=== PATIENT | male | born 1980 | race Caucasian/White ===

== ENCOUNTER 2021-09-02 21:52 | Emergency (ER) | payer BC ==
--- NOTE | 2021-09-02 23:33 | ERPHSYRPT ---
- History of Present Illness Time Seen by Provider: 09/02/21 23:25 Historian: patient Physician History: This is a 41-year-old white male patient who has had a history of gastroesophageal reflux disease and H. pylori diagnosis in the past and presents to the emergency room with a history of 8 days of diarrhea and 4 episodes of vomiting during those 8 days with the most recent just prior to arrival to emergency room. Patient was seen in the outpatient clinic and asked dual specimen was sent but the results are not yet available to us. Patient states that he did have a negative influenza A and B just a few days ago. Patient has had some abdominal cramping. He has no cough. He has no chest pain or shortness of breath. Patient and his spouse both were diagnosed with positive COVID 19 infection in early July 2021. Timing/Duration: day(s) (8) Activities at Onset: none Quality: cramping Severity of Pain-Max: moderate Severity of Pain-Current: moderate Modifying Factors: Improves With: vomiting Associated Symptoms: diarrhea, loss of appetite, nausea, vomiting, weakness Previous symptoms: same symptoms as today, recently seen, recently treated Allergies/Adverse Reactions: erythromycin ethylsuccinate [From [facility].] Allergy (Severe, Verified 01/23/14 09 :12) Rash Penicillins Allergy (Severe, Verified 01/23/14 09:12) Rash Home Medications: Omeprazole Magnesium [Prilosec Otc] 20 mg PO DAILY 01/23/14 [History] Hx Influenza Vaccination/Date Given: No Hx Pneumococcal Vaccination/Date Given: No Travel Risk - International Travel Have you traveled outside of the country in past 3 weeks: No - Coronavirus Screening Are you exhibiting any of the following symptoms?: Yes Symptoms: Vomiting/Diarrhea Close contact with a COVID-19 positive Pt in past 14-21 Days: No - Review of Systems Constitutional: Weakness Eyes: No Symptoms Ears, Nose, & Throat: No Symptoms Respiratory: No Symptoms Cardiac: No Symptoms Abdominal/Gastrointestinal: Abdominal Pain, Nausea, Vomiting, Diarrhea Genitourinary Symptoms: No Symptoms Musculoskeletal: No Symptoms Skin: No Symptoms Neurological: No Symptoms Psychological: No Symptoms Endocrine: No Symptoms Hematologic/Lymphatic: No Symptoms Immunological/Allergic: No Symptoms All Other Systems: Reviewed and Negative - Past Medical History Pertinent Past Medical History: Yes Neurological History: No Pertinent History ENT History: No Pertinent History Cardiac History: No Pertinent History Respiratory History: No Pertinent History Endocrine Medical History: No Pertinent History Musculoskeletal History: No Pertinent History GI Medical History: GERD, Hernia, Other History: No Pertinent History Psycho-Social History: No Pertinent History Male Reproductive Disorders: No Pertinent History Other Medical History: h-pylori diagnosis in 2009 - Past Surgical History Past Surgical History: Yes Neuro Surgical History: No Pertinent History Cardiac: No Pertinent History Respiratory: No Pertinent History Gastrointestinal: Hernia Repair Genitourinary: No Pertinent History Musculoskeletal: No Pertinent History Male Surgical History: No Pertinent History - Social History Smoking Status: Never smoker Exposure to second hand smoke: No Drug Use: none Patient Lives Alone: Yes - Nursing Vital Signs Nursing Vital Signs: Initial Vital Signs Temperature 98.6 F 09/02/21 23:10 Pulse Rate 111 H 09/02/21 23:10 Respiratory Rate 16 09/02/21 23:10 Blood Pressure 156/98 09/02/21 23:10 O2 Sat by Pulse Oximetry 98 09/02/21 23:10 Pain Scale Pain Intensity 2 - Physical Exam General Appearance: no apparent distress, alert, anxiety, thin Eye Exam: PERRL/EOMI, eyes nml inspection Ears, Nose, Throat Exam: normal ENT inspection, moist mucous membranes Neck Exam: normal inspection, non-tender, supple, full range of motion Respiratory Exam: normal breath sounds, lungs clear, airway intact, No chest tenderness, No respiratory distress Cardiovascular Exam: tachycardia Gastrointestinal/Abdomen Exam: soft, normal bowel sounds, tenderness (Diffuse), guarding, No rebound Rectal Exam: not done Back Exam: normal inspection, normal range of motion, No CVA tenderness, No vertebral tenderness Extremity Exam: normal inspection, normal range of motion, pelvis stable Neurologic Exam: alert, oriented x 3, cooperative, software development manager II-XII nml as tested, normal mood/affect, nml cerebellar function, nml station & gait, sensation nml Skin Exam: normal color, warm, dry Lymphatic Exam: No adenopathy SpO2 Interpretation: normal O2 Delivery: Room Air - Course Nursing assessment & vital signs reviewed: Yes Ordered Tests: Active Orders 24 hr Category Date Time Status IV Insertion STAT Care 09/02/21 23:37 Active ABDOMEN AND PELVIS W/0 CONTRAS [CT] Stat Exams 09/02/21 23:37 Taken AMYLASE Stat Lab 09/02/21 23:48 Completed BLOOD CULTURE Stat Lab 09/02/21 23:56 Received CBC W DIFF Stat Lab 09/02/21 23:37 Completed CMP Stat Lab 09/02/21 23:48 Completed LIPASE Stat Lab 09/02/21 23:48 Completed Lactic Acid Stat Lab 09/02/21 23:37 Completed Manual Differential NC Stat Lab 09/02/21 23:37 Completed Medication Summary Discontinued Medications Generic Name Dose Route Start Last Admin Trade Name Saurabhq PRN Reason Stop Dose Admin Hydromorphone HCl 0.5 mg 09/02/21 23:37 09/02/21 23:53 Hydromorphone 1 Mg/1ml Inj 1 Mg/Ml Syringe IV 09/02/21 23:38 0.5 mg STAT ONE Administration Hydromorphone HCl Confirm 09/02/21 23:50 Hydromorphone 1 Mg/1ml Inj 1 Mg/Ml Syringe Administered 09/02/21 23:51 Dose 1 mg .ROUTE .STK-MED ONE Sodium Chloride 1,000 mls @ 999 mls/hr 09/02/21 23:37 09/03/21 01:17 Sodium Chloride 0.9% 1000 Ml IV 09/03/21 00:37 Infused .Q1H1M STA Infusion Sodium Chloride Confirm 09/02/21 23:51 Sodium Chloride 0.9% 1000 Ml Administered 09/02/21 23:52 Dose 1,000 mls @ ud .ROUTE .STK-MED ONE Sodium Chloride 1,000 mls @ 999 mls/hr 09/03/21 00:27 09/03/21 01:35 Sodium Chloride 0.9% 1000 Ml IV 09/03/21 01:27 Infused .Q1H1M STA Infusion Sodium Chloride Confirm 09/03/21 00:32 Sodium Chloride 0.9% 1000 Ml Administered 09/03/21 00:33 Dose 1,000 mls @ ud .ROUTE .STK-MED ONE Ondansetron HCl 4 mg 09/02/21 23:37 09/02/21 23:53 Ondansetron Hcl 4 Mg/2 Ml Vial IV 09/02/21 23:38 4 mg STAT ONE Administration Ondansetron HCl Confirm 09/02/21 23:49 Ondansetron Hcl 4 Mg/2 Ml Vial Administered 09/02/21 23:50 Dose 4 mg .ROUTE .STK-MED ONE Lab/Rad Data: Laboratory Result Diagrams 09/02/21 23:37 09/02/21 23:48 Laboratory Results 09/02/21 09/02/21 09/02/21 Range/Units Unknown Unknown 23:56 WBC (4.0-10.5) K/mm3 RBC (4.1-5.6) M/mm3 Hgb (12.5-18.0) gm/dl Hct (42-50) % MCV (78-100) fl MCH (26-32) pg MCHC (32-36) g/dl RDW (11.5-14.0) % Plt Count (150-450) K/mm3 MPV (7.5-11.0) fl Gran % (36.0-66.0) % Eos # (Auto) (0-0.5) Absolute Lymphs (auto) (1.0-4.6) Absolute Monos (auto) (0.0-1.3) Lymphocytes % (24.0-44.0) % Monocytes % (0.0-12.0) % Eosinophils % (0.00-5.0) % Basophils % (0.0-0.4) % Absolute Granulocytes (1.4-6.9) Basophils # (0-0.4) Sodium (137-145) mmol/L Potassium (3.5-5.1) mmol/L Chloride (98-107) mmol/L Carbon Dioxide (22-30) mmol/L Anion Gap (5-15) MEQ/L BUN (9-20) mg/dL Creatinine (0.66-1.25) mg/dL Estimated GFR ML/MIN Glucose (74-106) mg/dL Lactic Acid (0.4-2.0) Calcium (8.4-10.2) mg/dL Total Bilirubin (0.2-1.3) mg/dL AST (17-59) U/L ALT (0-50) U/L Alkaline Phosphatase (38-126) U/L Serum Total Protein (6.3-8.2) g/dL Albumin (3.5-5.0) g/dL Amylase (30-110) U/L Lipase (23-300) U/L Urinalys Dipstick Clnc MAIN LAB Urine Color YELLOW (YELLOW) Urine Appearance CLEAR (CLEAR) Urine pH 5.5 (5-6) Ur Specific [place] >=1.030 (1.005-1.025) POC Urine Protein Conf 30 (Negative) Urine Ketones NEGATIVE (NEGATIVE) Urine Nitrite NEGATIVE (NEGATIVE) Urine Bilirubin SMALL (NEGATIVE) Urine Urobilinogen 0.2 (0-1) mg/dL Urine Leukocytes NEGATIVE (NEGATIVE) Urine WBC (Auto) 3-5 (0-5) /HPF Urine RBC (Auto) NONE (0-2) /HPF U Epithel Cells (Auto) NONE (FEW) /HPF Urine Bacteria (Auto) RARE (NEGATIVE) /HPF Urine RBC NEGATIVE (0-5) Nestor/ul Urine Mucus (Auto) MANY (NEGATIVE) /HPF Ur Culture Indicated? NO Urine Glucose NEGATIVE (NEGATIVE) mg/dL Monoscreen NEGATIVE (Negative) Influenza Type A Ag NEGATIVE (NEGATIVE) Influenza Type B Ag NEGATIVE (NEGATIVE) RSV (PCR) NEGATIVE (Negative) SARS-CoV-2 (PCR) NEGATIVE (NEGATIVE) Group A Strep Antibody (NEGATIVE) 09/02/21 09/02/21 09/02/21 Range/Units 23:56 23:48 23:37 WBC (4.0-10.5) K/mm3 RBC (4.1-5.6) M/mm3 Hgb (12.5-18.0) gm/dl Hct (42-50) % MCV (78-100) fl MCH (26-32) pg MCHC (32-36) g/dl RDW (11.5-14.0) % Plt Count (150-450) K/mm3 MPV (7.5-11.0) fl Gran % (36.0-66.0) % Eos # (Auto) (0-0.5) Absolute Lymphs (auto) (1.0-4.6) Absolute Monos (auto) (0.0-1.3) Lymphocytes % (24.0-44.0) % Monocytes % (0.0-12.0) % Eosinophils % (0.00-5.0) % Basophils % (0.0-0.4) % Absolute Granulocytes (1.4-6.9) Basophils # (0-0.4) Sodium 139 (137-145) mmol/L Potassium 4.4 (3.5-5.1) mmol/L Chloride 102 (98-107) mmol/L Carbon Dioxide 24 (22-30) mmol/L Anion Gap 17.2 H (5-15) MEQ/L BUN 21 H (9-20) mg/dL Creatinine 1.18 (0.66-1.25) mg/dL Estimated GFR > 60.0 ML/MIN Glucose 135 H (74-106) mg/dL Lactic Acid 1.3 (0.4-2.0) Calcium 10.1 (8.4-10.2) mg/dL Total Bilirubin 0.80 (0.2-1.3) mg/dL AST 27 (17-59) U/L ALT 41 (0-50) U/L Alkaline Phosphatase 99 (38-126) U/L Serum Total Protein 7.9 (6.3-8.2) g/dL Albumin 4.7 (3.5-5.0) g/dL Amylase 64 (30-110) U/L Lipase 39 (23-300) U/L Urinalys Dipstick Clnc Urine Color (YELLOW) Urine Appearance (CLEAR) Urine pH (5-6) Ur Specific [place] (1.005-1.025) POC Urine Protein Conf (Negative) Urine Ketones (NEGATIVE) Urine Nitrite (NEGATIVE) Urine Bilirubin (NEGATIVE) Urine Urobilinogen (0-1) mg/dL Urine Leukocytes (NEGATIVE) Urine WBC (Auto) (0-5) /HPF Urine RBC (Auto) (0-2) /HPF U Epithel Cells (Auto) (FEW) /HPF Urine Bacteria (Auto) (NEGATIVE) /HPF Urine RBC (0-5) Nestor/ul Urine Mucus (Auto) (NEGATIVE) /HPF Ur Culture Indicated? Urine Glucose (NEGATIVE) mg/dL Monoscreen (Negative) Influenza Type A Ag (NEGATIVE) Influenza Type B Ag (NEGATIVE) RSV (PCR) (Negative) SARS-CoV-2 (PCR) (NEGATIVE) Group A Strep Antibody NOT DETECTED (NEGATIVE) 09/02/21 Range/Units 23:37 WBC 14.5 H (4.0-10.5) K/mm3 RBC 5.75 H (4.1-5.6) M/mm3 Hgb 17.0 (12.5-18.0) gm/dl Hct 49.6 (42-50) % MCV 86.3 (78-100) fl MCH 29.6 (26-32) pg MCHC 34.3 (32-36) g/dl RDW 13.5 (11.5-14.0) % Plt Count 377 (150-450) K/mm3 MPV 9.7 (7.5-11.0) fl Gran % 81.7 H (36.0-66.0) % Eos # (Auto) 0.04 (0-0.5) Absolute Lymphs (auto) 1.50 (1.0-4.6) Absolute Monos (auto) 1.10 (0.0-1.3) Lymphocytes % 10.3 L (24.0-44.0) % Monocytes % 7.6 (0.0-12.0) % Eosinophils % 0.3 (0.00-5.0) % Basophils % 0.1 (0.0-0.4) % Absolute Granulocytes 11.88 H (1.4-6.9) Basophils # 0.02 (0-0.4) Sodium (137-145) mmol/L Potassium (3.5-5.1) mmol/L Chloride (98-107) mmol/L Carbon Dioxide (22-30) mmol/L Anion Gap (5-15) MEQ/L BUN (9-20) mg/dL Creatinine (0.66-1.25) mg/dL Estimated GFR ML/MIN Glucose (74-106) mg/dL Lactic Acid (0.4-2.0) Calcium (8.4-10.2) mg/dL Total Bilirubin (0.2-1.3) mg/dL AST (17-59) U/L ALT (0-50) U/L Alkaline Phosphatase (38-126) U/L Serum Total Protein (6.3-8.2) g/dL Albumin (3.5-5.0) g/dL Amylase (30-110) U/L Lipase (23-300) U/L Urinalys Dipstick Clnc Urine Color (YELLOW) Urine Appearance (CLEAR) Urine pH (5-6) Ur Specific [place] (1.005-1.025) POC Urine Protein Conf (Negative) Urine Ketones (NEGATIVE) Urine Nitrite (NEGATIVE) Urine Bilirubin (NEGATIVE) Urine Urobilinogen (0-1) mg/dL Urine Leukocytes (NEGATIVE) Urine WBC (Auto) (0-5) /HPF Urine RBC (Auto) (0-2) /HPF U Epithel Cells (Auto) (FEW) /HPF Urine Bacteria (Auto) (NEGATIVE) /HPF Urine RBC (0-5) Nestor/ul Urine Mucus (Auto) (NEGATIVE) /HPF Ur Culture Indicated? Urine Glucose (NEGATIVE) mg/dL Monoscreen (Negative) Influenza Type A Ag (NEGATIVE) Influenza Type B Ag (NEGATIVE) RSV (PCR) (Negative) SARS-CoV-2 (PCR) (NEGATIVE) Group A Strep Antibody (NEGATIVE) - Progress Progress: improved, pain not gone completely, re-examined Progress Note: 09/03/21 02:59 CAT scan of the abdomen pelvis shows fluid throughout the colon and fluid in portions of the small bowel compatible with nonspecific diarrheal disease. There is small mesenteric adenopathy present in the central abdomen and right lower quadrant. Counseled pt/family regarding: lab results, diagnosis, need for follow-up, rad results - Departure Departure Disposition: Home Clinical Impression: Diarrhea Condition: Stable Critical Care Time: No Referrals: ROBERTA SINCLAIR MD [Primary Care Provider] - Follow up/PCP as directed Additional Instructions: Drink plenty of fluids. Take medication as prescribed. Follow-up with your primary care physician for further management. Prescriptions: Ondansetron ODT 4 MG [Zofran Odt 4 mg] 4 mg PO Q6H PRN PRN #10 tablet PRN Reason: Vomiting Metronidazole 500 mg [Flagyl 500 MG] 500 mg PO TID #21 tablet
[2021-09-02] MEDS ORDERED: Hydromorphone 1 mg/ml Injection IV ONE (23:37)
[2021-09-02] MEDS ORDERED: Zofran 4 MG/2 ML VIAL IV ONE (23:37)
[2021-09-02] MEDS ORDERED: Sodium Chloride 0.9% 1000 ML 1,000 ML IV STA (23:37)
[2021-09-02] MEDS ORDERED: Zofran 4 MG/2 ML VIAL ONE (23:49)
[2021-09-02] MEDS ORDERED: Hydromorphone 1 mg/ml Injection ONE (23:50)
[2021-09-02] MEDS ORDERED: Sodium Chloride 0.9% 1000 ML 1,000 ML ONE (23:51)
[2021-09-02 23:53] LABS: Absolute Neutrophil Ct (ANC) 11.88 (1.4-6.9); Basophil (Absolute #) 0.02 (0-0.4); Eosinophil % 0.3 % (0.00-5.0); Eosinophil (Absolute #) 0.04 (0-0.5); Hematocrit 49.6 % (42-50); Lymphocytes % 10.3 % (24.0-44.0); Mean Cell Volume 86.3 fl (78-100); Mean Corpuscular Hemoglobin 29.6 pg (26-32); Mean Corpuscular Hgb Concent. 34.3 g/dl (32-36); Mean Platelet Volume 9.7 fl (7.5-11.0); Monocytes % 7.6 % (0.0-12.0); Neutrophil % 81.7 % (36.0-66.0); Platelet Count 377 K/mm3 (150-450); Red Blood Count 5.75 M/mm3 (4.1-5.6); Red Cell Distribution Width 13.5 % (11.5-14.0); White Blood Count 14.5 K/mm3 (4.0-10.5)
[2021-09-02 23:55] LABS: ALBUMIN 4.7 g/dL (3.5-5.0); ALKALINE PHOSPHATASE 99 U/L (38-126); AMYLASE 64 U/L (30-110); ANION GAP 17.2 MEQ/L (5-15); BLOOD UREA NITROGEN 21 mg/dL (9-20); CHLORIDE 102 mmol/L (98-107); Calcium 10.1 mg/dL (8.4-10.2); Carbon Dioxide 24 mmol/L (22-30); Creatinine 1 1.18 mg/dL (0.66-1.25); EST GLOMERULAR FILTRATION RATE > 60.0 ML/MIN; Glucose 135 mg/dL (74-106); LIPASE 39 U/L (23-300); Potassium 4.4 mmol/L (3.5-5.1); SGOT/AST 27 U/L (17-59); SGPT/ALT 41 U/L (0-50); SODIUM 139 mmol/L (137-145); Total Protein 7.9 g/dL (6.3-8.2)
[2021-09-03] MEDS ORDERED: Sodium Chloride 0.9% 1000 ML 1,000 ML IV STA (00:27)
[2021-09-03] MEDS ORDERED: Sodium Chloride 0.9% 1000 ML 1,000 ML ONE (00:32)
[2021-09-03 00:36] LABS: INFLUENZA A NEGATIVE (NEGATIVE); INFLUENZA B NEGATIVE (NEGATIVE); RESPIRATORY SYNCTIAL VIRUS NEGATIVE (Negative); SARS-CoV-2 Xpert Express NEGATIVE (NEGATIVE)
[2021-09-03 01:13] LABS: Appearance CLEAR (CLEAR); Bilirubin SMALL (NEGATIVE); Dipstick done @ ? MAIN LAB; Glucose NEGATIVE (NEGATIVE); Ketones NEGATIVE (NEGATIVE); Nitrite NEGATIVE (NEGATIVE); Ph 5.5 (5-6); Protein,Urine Dip 30 (Negative); RBC NEGATIVE Ery/ul (0-5); Specific Gravity >=1.030 (1.005-1.025); Urobilinogen 0.2 mg/dL (0-1)
[2021-09-03 01:15] LABS: Bacteria RARE /HPF (NEGATIVE); Mucus MANY /HPF (NEGATIVE)
[2021-09-03 01:16] LABS: Urine Cultured Indicated? NO
[2021-09-03] MEDS ORDERED: Flagyl 500 MG PO ONE (03:02)
[2021-09-03] MEDS ORDERED: Flagyl 500 MG ONE (03:04)
[2021-09-03 03:07] VITALS: BP 115/68
[2021-09-03 03:08] VITALS: PULSE 80; O2SAT 97
--- NOTE | 2021-09-03 07:58 | XRAY ---
Indication: Abdomen pain, nausea, vomiting, diarrhea. Multiple contiguous axial images obtained through the abdomen and pelvis without contrast. Comparison: None Lung bases demonstrates minimal dependent atelectasis. No infiltrate or effusion. Heart not enlarged. Noncontrasted stomach and bowel loops appear nonobstructed. Tiny punctate appendicolith without appendicitis. Mild fluid distended colon throughout favoring diarrhea. Small centimeter/subcentimeter mesenteric nodes favoring adenitis. No free fluid/air. Remaining liver, gallbladder, pancreas, spleen, adrenal glands, kidneys, ureters, bladder, and aorta are unremarkable for noncontrast exam. Osseous structures intact. No ventral or inguinal hernias. Impression: 1. Diffuse colonic diarrhea. 2. Small mesenteric nodes favoring mesenteric adenitis. 3. Punctate appendicolith without appendicitis. 4. Remaining CT abdomen/pelvis without contrast exam is negative. Comment: Preliminary interpretation made by [facility]. No critical discrepancy.
== END 2021-09-03 03:34 | disposition home or self-care (01) ==
LOC: ED 21:52
DX: R19.7 Diarrhea, unspecified (principal); R11.2 Nausea with vomiting, unspecified; K21.9 Gastro-esophageal reflux disease without esophagitis; Z86.16 Personal history of COVID-19
CPT/HCPCS: 0241U; 36000; 36415; 74176; 80053; 81015; 82150; 83605; 83690; 85025; 86308; 87040; 87651; 96360; 96374; 99284; 96361; 96375; J1170; J2405; A9270-GY

== ENCOUNTER 2022-05-01 10:50 | Day surgery (SDC) | payer OTHER ==
--- NOTE | 2022-04-24 09:53 | HP ---
DATE OF SURGERY: 05/01/2022 HISTORY OF PRESENT ILLNESS: The patient is a 42-year-old with history of a lot of reflux, problems bending over and picking things up, some burning or ring of fire sensation. Last upper endoscopy seven years ago. PAST MEDICAL HISTORY: Gastroesophageal reflux disease. Hernia. PAST SURGICAL HISTORY: Inguinal hernia repair in the past. MEDICATIONS: None on a regular basis. ALLERGIES: PENICILLIN (RASH). ERYTHROMYCIN (RASH). FAMILY HISTORY: Uterine cancer. Heart disease. Diabetes. SOCIAL HISTORY: No smoking or alcohol abuse. REVIEW OF SYSTEMS: Fourteen systems reviewed. No chest pain or palpitations. Other systems negative or noncontributory as above and per preadmission questionnaire. PHYSICAL EXAMINATION: Weight 160. BMI 21. GENERAL: No acute distress. HEENT: Sclerae nonicteric. NECK: No JVD. CHEST: Equal excursion, nonlabored breathing. CVS: Regular rate and rhythm. ABDOMEN: Soft. No peritoneal signs. EXTREMITIES: No significant edema. NEURO: Alert, oriented, moving extremities symmetrically. RECTAL: Deferred timed to endoscopy exam. PSYCH: Appropriate mood and affect. SKIN: Dry. IMPRESSION: Increase in reflux, history of hiatal hernia in the past. I recommend upper endoscopy with possible biopsy to evaluate for esophagitis, gastritis, peptic ulcer disease or other etiology. Risk explained in detail but not limited to bleeding or infection, risk of bowel injury or perforation, risk of missed or nondiagnosis or incomplete exam possibly requiring barium swallow, other studies or procedures, possible need for pH and manometry testing. General risk of anesthesia or sedation but not limited to, consent obtained. Will proceed with EGD possible biopsy as an outpatient under MAC anesthesia.
[2022-05-01] MEDS ORDERED: Lactated Ringers 1,000 ML IV SCH ×2 (11:30)
[2022-05-01] MEDS ORDERED: Versed 2 MG/2 ML Injection ONE (13:57)
[2022-05-01] MEDS ORDERED: SUBLIMAZE 100 MCG/2 ML ONE (13:57)
[2022-05-01] MEDS ORDERED: DIPRIVAN 200 MG/20 ML IV ONE (13:59)
[2022-05-01 15:18] VITALS: BP 101/63; PULSE 51; O2SAT 96
--- NOTE | 2022-05-02 11:19 | OP ---
SURGERY DATE/TIME: 05/01/2022 1401 PREOPERATIVE DIAGNOSIS: History of some reflux, needs follow up upper endoscopy to evaluate for esophagitis, gastritis, peptic ulcer disease or other etiology. POSTOPERATIVE DIAGNOSES:1) Very short segment of distal erosive esophagitis, minimal gastritis. No visible evidence of endoscopically visible hiatal hernia on endoscopy. 2) ASA Class II. PROCEDURES: 1) EGD with cold biopsy of antrum for Helicobacter pylori. 2) Cold biopsy distal esophagus to evaluate for esophagitis. SURGEON: Dr. Ryan Lara. ANESTHESIA: MAC. ESTIMATED BLOOD LOSS: Minimal. INDICATIONS: As noted above. Risks and benefits explained in detail and not limited to and consent obtained. DESCRIPTION OF PROCEDURE AND FINDINGS: The patient is taken to the endoscopy room. MAC anesthesia introduced. After official time out and no disagreement with planned procedure, a bite block positioned. Video gastroscope easily passed down the esophagus. Gastroesophageal junction about 41 cm. The scope is passed down through the patent pylorus to the third portion of the duodenum. Third, second and first portion of the duodenum grossly unremarkable. Scope pulled back up into the stomach with some mild gastric erythema. Cold biopsy is taken to evaluate for Helicobacter pylori. Good hemostasis noted. On retroflex, the gastroesophageal junction seemed to be snug against the scope. There did not appear to be any evidence of any significant hiatal hernia. The patient had been told he had hiatal hernia in the past but on endoscopic view did not appear to be any significant evidence of any significant hiatal hernia on this retroflex view. The scope is straightened. Gastroesophageal junction 40 cm. There was a short segment of 1 cm or so of linear erosion. There is a small second area of about 1 mm of inflammation consistent with some erosive esophagitis. Given the narrow area probably grade A esophagitis. Otherwise, cold biopsy taken of distal esophagus for path. Good hemostasis noted. The remainder of more proximal esophagus grossly unremarkable. The scope is withdrawn. The family said he currently was not on proton pump inhibitor. I will see him back in the office to go over the results in a week or two.
== END 2022-05-01 15:20 | disposition home or self-care (01) ==
LOC: SDC 10:50
PROVIDERS: ATTEND Surgery
DX: K22.10 Ulcer of esophagus without bleeding (principal); K21.9 Gastro-esophageal reflux disease without esophagitis; K29.70 Gastritis, unspecified, without bleeding
CPT/HCPCS: J2250; J2704; J3010

== ENCOUNTER 2023-03-11 01:25 | Emergency (ER) | payer OTHER ==
[2023-03-11 01:50] VITALS: TEMP 97.1
[2023-03-11] MEDS ORDERED: Zofran 4 MG/2 ML VIAL IV ONE (01:59)
[2023-03-11] MEDS ORDERED: Sodium Chloride 0.9% 1000 ML 1,000 ML IV STA (01:59)
[2023-03-11] MEDS ORDERED: MORPHINE SULFATE 4 MG INJ IV ONE (01:59)
--- NOTE | 2023-03-11 01:59 | ERPHSYRPT ---
- History of Present Illness Time Seen by Provider: 03/11/23 01:56 Historian: patient Exam Limitations: no limitations Patient Subjective Stated Complaint: pt states he has been having diffuse abd pain since sunday. pain has increased since. Triage Nursing Assessment: pt alert and oriented, answers questions approp. pt ambulates into room wtih steady gait noted. respirations nonlabored. abd soft, pt reports mild tenerness with palptation. no guarding noted. bowel sounds present x4 quads. Physician History: 42-year-old male with history of Niesen fundoplication presented in the ER with chief complaint of periumbilical pain for the last 2 days with progressive worsening. Patient reports sharp pain moderate intensity with no associated nausea vomiting diarrhea constipation. No significant aggravating or relieving factors. Allergies/Adverse Reactions: erythromycin ethylsuccinate [From [facility] Allergy (Severe, Verified 03/11/23 01:35) Rash Penicillins Allergy (Severe, Verified 03/11/23 01:35) Rash Home Medications: No Reportable Medications [No Reported Medications] 04/14/22 [History] Hx Tetanus, Diphtheria Vaccination/Date Given: Yes Hx Influenza Vaccination/Date Given: No Hx Pneumococcal Vaccination/Date Given: No Immunizations Up to Date: Yes Travel Risk - International Travel Have you traveled outside of the country in past 3 weeks: No - Coronavirus Screening Are you exhibiting any of the following symptoms?: No Close contact with a COVID-19 positive Pt in past 14-21 Days: No - Vaccine Status Have you recieved a Covid-19 vaccination: No - Review of Systems Constitutional: No Symptoms Eyes: No Symptoms Ears, Nose, & Throat: No Symptoms Respiratory: No Symptoms Cardiac: No Symptoms Abdominal/Gastrointestinal: Abdominal Pain Genitourinary Symptoms: No Symptoms Musculoskeletal: No Symptoms Skin: No Symptoms Neurological: No Symptoms Hematologic/Lymphatic: No Symptoms Immunological/Allergic: No Symptoms - Past Medical History Pertinent Past Medical History: Yes Neurological History: No Pertinent History ENT History: No Pertinent History Cardiac History: No Pertinent History Respiratory History: No Pertinent History Endocrine Medical History: No Pertinent History Musculoskeletal History: No Pertinent History GI Medical History: GERD, Hernia, Other History: No Pertinent History Psycho-Social History: No Pertinent History Male Reproductive Disorders: No Pertinent History Other Medical History: h-pylori diagnosis in 2009. hiatal hernia, inguinal - Past Surgical History Past Surgical History: Yes Neuro Surgical History: No Pertinent History Cardiac: No Pertinent History Respiratory: No Pertinent History Gastrointestinal: Hernia Repair Genitourinary: No Pertinent History Musculoskeletal: No Pertinent History Male Surgical History: No Pertinent History Other Surgical History: petra fundoplication in october with dr reyes at [facility] - Social History Smoking Status: Never smoker Exposure to second hand smoke: No Drug Use: none Patient Lives Alone: No - Nursing Vital Signs Nursing Vital Signs: Initial Vital Signs Temperature 97.1 F 03/11/23 01:37 Pulse Rate 56 L 03/11/23 01:37 Respiratory Rate 16 03/11/23 01:37 Blood Pressure 147/92 03/11/23 01:37 O2 Sat by Pulse Oximetry 98 03/11/23 01:37 Pain Scale Pain Intensity 2 - Physical Exam General Appearance: no apparent distress, alert Eye Exam: PERRL/EOMI Ears, Nose, Throat Exam: normal ENT inspection Neck Exam: normal inspection, full range of motion Respiratory Exam: normal breath sounds, lungs clear Cardiovascular Exam: regular rate/rhythm, normal heart sounds Gastrointestinal/Abdomen Exam: soft, normal bowel sounds, tenderness (Periumbilical), No rebound Back Exam: normal inspection, normal range of motion Extremity Exam: normal inspection, normal range of motion Neurologic Exam: alert, oriented x 3, cooperative Skin Exam: normal color SpO2 Interpretation: normal SpO2: 98 O2 Delivery: Room Air Ordered Tests: Active Orders 24 hr Category Date Time Status IV Insertion STAT Care 03/11/23 01:59 Active NPO (ED) STAT Care 03/11/23 01:59 Active ABDOMEN AND PELVIS W CONTRAST [CT] Stat Exams 03/11/23 01:59 Completed CBC W DIFF Stat Lab 03/11/23 02:15 Completed CMP Stat Lab 03/11/23 02:15 Completed LIPASE Stat Lab 03/11/23 02:15 Completed UA W/RFX UR CULTURE Stat Lab 03/11/23 03:21 Completed Medication Summary Discontinued Medications Generic Name Dose Route Start Last Admin Trade Name Freq PRN Reason Stop Dose Admin Sodium Chloride 1,000 mls @ 999 mls/hr 03/11/23 01:59 03/11/23 03:21 Sodium Chloride 0.9% 1000 Ml IV 03/11/23 02:59 Infused .Q1H1M STA Infusion Sodium Chloride Confirm 03/11/23 02:03 Sodium Chloride 0.9% 1000 Ml Administered 03/11/23 02:04 Dose 1,000 mls @ ud .ROUTE .STK-MED ONE Morphine Sulfate 4 mg 03/11/23 01:59 03/11/23 02:08 Morphine Sulfate 4 Mg/Ml Injection IV 03/11/23 02:00 4 mg STAT ONE Administration Morphine Sulfate Confirm 03/11/23 02:03 Morphine Sulfate 4 Mg/Ml Injection Administered 03/11/23 02:04 Dose 4 mg .ROUTE .STK-MED ONE Ondansetron HCl 4 mg 03/11/23 01:59 03/11/23 02:08 Ondansetron Hcl 4 Mg/2 Ml Vial IV 03/11/23 02:00 4 mg STAT ONE Administration Ondansetron HCl Confirm 03/11/23 02:03 Ondansetron Hcl 4 Mg/2 Ml Vial Administered 03/11/23 02:04 Dose 4 mg .ROUTE .STK-MED ONE Lab/Rad Data: Laboratory Result Diagrams 03/11/23 02:15 03/11/23 02:15 Laboratory Results 03/11/23 03/11/23 03/11/23 Range/Units 03:21 02:15 02:15 WBC 9.1 (4.0-10.5) x10^3/uL RBC 5.47 (4.1-5.6) x10^6/uL Hgb 16.2 (12.5-18.0) g/dL Hct 49.0 (42-50) % MCV 89.6 (78-100) fL MCH 29.6 (26-32) pg MCHC 33.1 (32-36) g/dL RDW 13.0 (11.5-14.0) % Plt Count 248 (150-450) x10^3/uL MPV 9.7 (7.5-11.0) fL Gran % 83.8 H (36.0-66.0) % Immature Gran % (Auto) 0.2 (0.00-0.4) % Nucleat RBC Rel Count 0.0 (0.00-0.1) % Eos # (Auto) 0.01 (0-0.5) x10^3/uL Immature Gran # (Auto) 0.02 (0.00-0.03) x10^3u/L Absolute Lymphs (auto) 1.06 (1.0-4.6) x10^3/uL Absolute Monos (auto) 0.38 (0.0-1.3) x10^3/uL Absolute Nucleated RBC 0.00 (0.00-0.01) x10^3u/L Lymphocytes % 11.6 L (24.0-44.0) % Monocytes % 4.2 (0.0-12.0) % Eosinophils % 0.1 (0.00-5.0) % Basophils % 0.1 (0.0-0.4) % Absolute Granulocytes 7.62 H (1.4-6.9) x10^3/uL Basophils # 0.01 (0-0.4) x10^3/uL Sodium 135 L (137-145) mmol/L Potassium 4.4 (3.5-5.1) mmol/L Chloride 100 (98-107) mmol/L Carbon Dioxide 27 (22-30) mmol/L Anion Gap 12.8 (5-15) MEQ/L BUN 21 H (9-20) mg/dL Creatinine 0.91 (0.66-1.25) mg/dL Estimated GFR 108.6 ML/MIN Glucose 136 H (74-106) mg/dL Calcium 10.1 (8.4-10.2) mg/dL Total Bilirubin 0.40 (0.2-1.3) mg/dL AST 31 (17-59) U/L ALT 45 (0-50) U/L Alkaline Phosphatase 77 (38-126) U/L Serum Total Protein 7.9 (6.3-8.2) g/dL Albumin 4.9 (3.5-5.0) g/dL Lipase 27 (23-300) U/L Urine Color Yellow (Yellow) Urine Appearance Clear (Clear) Urine pH 5.5 (4.6-8.0) Ur Specific [place] >=1.030 A (1.005-1.030) Urine Protein Negative (Negative) Urine Glucose (UA) Negative (Negative) mg/dL Urine Ketones Negative (Negative) Urine Blood Trace (Negative) Urine Nitrite Negative (Negative) Urine Bilirubin Negative (Negative) Urine Urobilinogen 0.2 (0.2) mg/dL Ur Leukocyte Esterase Negative (Negative) U Hyaline Cast (Auto) NONE SEEN (0-2) /LPF Urine Microscopic RBC 0-2 (0-5) /HPF Urine Microscopic WBC 0-2 (0-5) /HPF Ur Epithelial Cells None Seen (None Seen) /HPF Urine Bacteria None Seen (None Seen) /HPF Urine Culture Reflexed NO (NO) - Progress Progress: improved, re-examined Progress Note: 03/11/23 04:55 42-year-old with history of Niesen fundoplication is evaluated in the ER with periumbilical pain for the last couple of days. Patient has no vomiting or diarrhea. He is given fluids and symptomatic treatment for pain, on reevaluation feeling much improved. Minimal abdominal tenderness on repeated evaluation. Acute abdomen work-up was done which showed normal white count, unremarkable chemistries and no UTI. CT abdomen pelvis with contrast is negative for any acute intra-abdominal/pelvic pathology. His pain could be secondary to adhesions from previous surgery but no emergent intervention is re quired. Recommended taking Tylenol/ibuprofen and outpatient follow-up. Discussed signs symptoms of worsening needing return to ER which he seems understanding. Stable for discharge. Counseled pt/family regarding: lab results, diagnosis, need for follow-up, rad results Medical Desision Making - Independent Historian Additional History obtained from: Spouse - Diagnostic Testing Diagnostic test were ordered, analyzed, and reviewed by me: Yes Radiological Interpretation: Reviewed by me, Teleradiologist Report - Departure Departure Disposition: Home Clinical Impression: Periumbilical pain Condition: Stable Critical Care Time: No Referrals: ROBERTA SINCLAIR MD [Primary Care Provider] - Follow up with PCP 1 day Instructions: Severe Abdominal Pain, Adult (DC) Additional Instructions: Take Tylenol/ibuprofen as needed for pain. Follow-up with primary care for reevaluation. Return to the ER for intractable abdominal pain/nausea vomiting/fever chills/intractable diarrhea etc.
[2023-03-11] MEDS ORDERED: Sodium Chloride 0.9% 1000 ML 1,000 ML ONE (02:03)
[2023-03-11] MEDS ORDERED: MORPHINE SULFATE 4 MG INJ ONE (02:03)
[2023-03-11] MEDS ORDERED: Zofran 4 MG/2 ML VIAL ONE (02:03)
[2023-03-11 02:18] LABS: Absolute Neutrophil Ct (ANC) 7.62 x10^3/uL (1.4-6.9); BASOPHIL % 0.1 % (0.0-0.4); Basophil (Absolute #) 0.01 x10^3/uL (0-0.4); Eosinophil % 0.1 % (0.00-5.0); Eosinophil (Absolute #) 0.01 x10^3/uL (0-0.5); Hemoglobin 16.2 g/dL (12.5-18.0); IMMATURE GRAN # 0.02 x10^3u/L (0.00-0.03); IMMATURE GRAN % 0.2 % (0.00-0.4); Lymphocyte (Absolute #) 1.06 x10^3/uL (1.0-4.6); Lymphocytes % 11.6 % (24.0-44.0); Mean Cell Volume 89.6 fL (78-100); Mean Corpuscular Hemoglobin 29.6 pg (26-32); Mean Corpuscular Hgb Concent. 33.1 g/dL (32-36); Mean Platelet Volume 9.7 fL (7.5-11.0); Monocyte (Absolute #) 0.38 x10^3/uL (0.0-1.3); Monocytes % 4.2 % (0.0-12.0); Neutrophil % 83.8 % (36.0-66.0); Platelet Count 248 x10^3/uL (150-450); Red Blood Count 5.47 x10^6/uL (4.1-5.6); White Blood Count 9.1 x10^3/uL (4.0-10.5)
[2023-03-11 02:33] LABS: ALBUMIN 4.9 g/dL (3.5-5.0); ANION GAP 12.8 MEQ/L (5-15); BILIRUBIN,TOTAL 0.4 mg/dL (0.2-1.3); Calcium 10.1 mg/dL (8.4-10.2); Creatinine 1 0.91 mg/dL (0.66-1.25); EST GLOMERULAR FILTRATION RATE 108.6 ML/MIN; Potassium 4.4 mmol/L (3.5-5.1); Total Protein 7.9 g/dL (6.3-8.2)
--- NOTE | 2023-03-11 03:21 | XRAY ---
CLINICAL HISTORY:Periumbilical pain COMPARISON:None. TECHNIQUE:CT scan of the abdomen and pelvis was performed with IV contrast. Coronal and sagittal reconstructive images were also obtained. FINDINGS: The liver is normal in size. No focal or diffuse parenchymal abnormality. The portal vein, intrahepatic biliary radicals and the bile ducts are normal. The spleen, pancreas, adrenal glands are unremarkable. The kidneys are unremarkable. They are normal in size and shape. No calculi or hydronephrosis. The gallbladder is normal. No pericholecystic collection or radio dense calculi in the gall bladder The visualized small bowel loops are unremarkable. Colonic diverticuli without evidence of diverticulitis. There is no evidence of significant enlargement of the mesenteric or retroperitoneal lymph nodes. Appendix is normal. The urinary bladder is unremarkable. The rectosigmoid colon is unremarkable. The prostate is unremarkable. The pelvic vasculature is unremarkable. No evidence of pelvic lymphadenopathy. The osseous structures in the pelvis, lower rib cage and lumbar spine show no abnormality. No lytic or sclerotic bone lesions. Colonic diverticuli without evidence of diverticulitis. IMPRESSION: Colonic diverticuli without evidence of diverticulitis. Electronically Signed by: Trish Ramirez MD. (03/11/2023 02:21:10 DULSER)
[2023-03-11 03:36] LABS: Appearance Clear (Clear); Bacteria None Seen /HPF (None Seen); Bilirubin Negative (Negative); Blood Trace (Negative); Epithelial Cells None Seen /HPF (None Seen); Glucose, Urine Negative (Negative); Hyaline Casts NONE SEEN /LPF (0-2); Ketones Negative (Negative); Leukocyte Esterase Negative (Negative); Nitrite Negative (Negative); Ph 5.5 (4.6-8.0); Protein,Urine Dip Negative (Negative); RBC 0-2 /HPF (0-5); Specific Gravity >=1.030 (1.005-1.030); Urobilinogen 0.2 mg/dL (0.2); WBC 0-2 /HPF (0-5)
[2023-03-11 03:43] LABS: ADD URINE CULTURE? NO (NO)
[2023-03-11 05:02] VITALS: BP 124/86; PULSE 48; RESP 16; O2SAT 97
== END 2023-03-11 05:09 | disposition home or self-care (01) ==
LOC: ED 01:25
DX: R10.33 Periumbilical pain (principal); Z28.310 Unvaccinated for COVID-19
CPT/HCPCS: 36000; 36415; 74177; 80053; 81001; 83690; 85025; 96374; 96375; 99284; J2270; J2405

== ENCOUNTER 2023-03-13 20:40 | Observation (INO) | payer OTHER ==
[2023-03-13] MEDS ORDERED: MORPHINE SULFATE 4 MG INJ IV ONE ×2 (21:06→22:30)
[2023-03-13] MEDS ORDERED: Sodium Chloride 0.9% 1000 ML 1,000 ML IV STA (21:06)
[2023-03-13] MEDS ORDERED: Zofran 4 MG/2 ML VIAL IV ONE (21:07)
[2023-03-13] MEDS ORDERED: MORPHINE SULFATE 4 MG INJ ONE ×2 (21:11→22:32)
[2023-03-13] MEDS ORDERED: Sodium Chloride 0.9% 1000 ML 1,000 ML ONE (21:11)
[2023-03-13] MEDS ORDERED: Zofran 4 MG/2 ML VIAL ONE (21:11)
--- NOTE | 2023-03-13 21:11 | ERPHSYRPT ---
- History of Present Illness Time Seen by Provider: 03/13/23 20:50 Historian: patient Exam Limitations: no limitations Patient Subjective Stated Complaint: pt states he has had mild abd since being seen in er this weekend. states today pain has suddenly gotten much worse. Triage Nursing Assessment: pt alert and oriented, answers questions approp. p ambulates into room with steady gait noted. respirations onlabored. pt reports mild tenderness with palpation. bowel sounds present x4 Physician History: Patient is a 42-year-old male presents to our ED for the second time in 2 days for evaluation of abdominal pain. Patient was in our ED on the . Patient had laboratory work-up including CT abdomen pelvis with contrast. Work-up was essentially nonremarkable. Patient discharged home. Patient states pain never completely resolved. Patient is here today as the pain is gotten acutely worse. No trauma no fever. Patient advised that he had a Petra plication performed forehead or hernia in October 2022. Pain described as an ache that is primarily in the periumbilical region. Pain localized. No radiation. Pain worse with palpation pain improved with rest. No trauma no fever. No diarrhea. No rash. Patient voices no other complaints or concerns at this time. Portions of this note were created with voice recognition technology. There may be grammatical, spelling, punctuation or sound alike errors Timing/Duration: day(s) (2 days) Activities at Onset: none Quality: aching Abdominal Pain Onset Location: periumbilical Pain Radiation: no radiation Severity of Pain-Max: moderate Severity of Pain-Current: mild Modifying Factors: Improves With: palpation Associated Symptoms: denies symptoms Previous symptoms: same symptoms as today Allergies/Adverse Reactions: erythromycin ethylsuccinate [From E.E.S.] Allergy (Severe, Verified 03/13/23 21:06) Rash Penicillins Allergy (Severe, Verified 03/13/23 21:06) Rash Home Medications: Smz/Tmp Ds Tablet [Bactrim Ds Tablet] 1 udtab PO BID 03/13/23 [History] Hx Tetanus, Diphtheria Vaccination/Date Given: Yes Hx Influenza Vaccination/Date Given: No Hx Pneumococcal Vaccination/Date Given: No Immunizations Up to Date: Yes Travel Risk - International Travel Have you traveled outside of the country in past 3 weeks: No - Coronavirus Screening Are you exhibiting any of the following symptoms?: No Close contact with a COVID-19 positive Pt in past 14-21 Days: No - Vaccine Status Have you recieved a Covid-19 vaccination: No - Review of Systems Constitutional: No Symptoms, No Fever, No Chills Eyes: No Symptoms Ears, Nose, & Throat: No Symptoms Respiratory: No Symptoms, No Cough, No Dyspnea Cardiac: No Symptoms, No Chest Pain, No Edema, No Syncope Abdominal/Gastrointestinal: No Symptoms, No Abdominal Pain, No Nausea, No Vomiting, No Diarrhea Genitourinary Symptoms: No Symptoms, No Dysuria Musculoskeletal: No Symptoms, No Back Pain, No Neck Pain Skin: No Symptoms, No Rash Neurological: No Symptoms, No Dizziness, No Focal Weakness, No Sensory Changes Psychological: No Symptoms Endocrine: No Symptoms Hematologic/Lymphatic: No Symptoms Immunological/Allergic: No Symptoms All Other Systems: Reviewed and Negative - Past Medical History Pertinent Past Medical History: Yes Neurological History: No Pertinent History ENT History: No Pertinent History Cardiac History: No Pertinent History Respiratory History: No Pertinent History Endocrine Medical History: No Pertinent History Musculoskeletal History: No Pertinent History GI Medical History: GERD, Hernia, Other History: No Pertinent History Psycho-Social History: No Pertinent History Male Reproductive Disorders: No Pertinent History Other Medical History: h-pylori diagnosis in 2009. hiatal hernia, inguinal - Past Surgical History Past Surgical History: Yes Neuro Surgical History: No Pertinent History Cardiac: No Pertinent History Respiratory: No Pertinent History Gastrointestinal: Hernia Repair Genitourinary: No Pertinent History Musculoskeletal: No Pertinent History Male Surgical History: No Pertinent History Other Surgical History: petra fundoplication in october with dr reyes at [place] - Social History Smoking Status: Never smoker Exposure to second hand smoke: No Drug Use: none Patient Lives Alone: No - Nursing Vital Signs Nursing Vital Signs: Initial Vital Signs Temperature 97.6 F 03/13/23 20:47 Pulse Rate 69 03/13/23 20:47 Respiratory Rate 18 03/13/23 20:47 Blood Pressure 146/89 03/13/23 20:47 O2 Sat by Pulse Oximetry 100 03/13/23 20:47 Pain Scale Pain Intensity 7 - Physical Exam General Appearance: no apparent distress, alert Eye Exam: PERRL/EOMI, eyes nml inspection Ears, Nose, Throat Exam: normal ENT inspection, pharynx normal, moist mucous membranes Neck Exam: normal inspection, non-tender, supple, full range of motion Respiratory Exam: normal breath sounds, lungs clear, airway intact, No respiratory distress Cardiovascular Exam: regular rate/rhythm, normal heart sounds, normal peripheral pulses Gastrointestinal/Abdomen Exam: soft, tenderness (Periumbilical tenderness), No mass, No guarding Back Exam: normal inspection, normal range of motion, No CVA tenderness, No vertebral tenderness Extremity Exam: normal inspection, normal range of motion, pelvis stable Neurologic Exam: alert, oriented x 3, cooperative, normal mood/affect, nml cerebellar function, sensation nml, No motor deficits Skin Exam: normal color, warm, dry Lymphatic Exam: No adenopathy SpO2 Interpretation: normal SpO2: 100 O2 Delivery: Room Air - Course Nursing assessment & vital signs reviewed: Yes - CT Exams Abdomen/Pelvis CT Interpretation: Tele-radiologist Report (No change compared to a CT with contrast 2 days ago. Again diffuse fecal stasis. No new acute findings) Ordered Tests: Active Orders 24 hr Category Date Time Status IV Insertion STAT Care 03/13/23 21:06 Active ABDOMEN AND PELVIS W CONTRAST [CT] Stat Exams 03/13/23 21:06 Taken CBC W DIFF Stat Lab 03/13/23 21:15 Completed CMP Stat Lab 03/13/23 21:15 Completed LIPASE Stat Lab 03/13/23 21:15 Completed TROPONIN Q4H Lab 03/13/23 21:15 Completed TROPONIN Q4H Lab 03/14/23 01:23 Completed TROPONIN Q4H Lab 03/14/23 05:15 Ordered UA W/RFX UR CULTURE Stat Lab 03/13/23 22:02 Completed Medication Summary Discontinued Medications Generic Name Dose Route Start Last Admin Trade Name Freq PRN Reason Stop Dose Admin Hydromorphone HCl 0.5 mg 03/14/23 02:28 Hydromorphone 1 Mg/1ml Inj IV 03/14/23 02:29 STAT ONE Sodium Chloride 1,000 mls @ 999 mls/hr 03/13/23 21:06 03/13/23 22:13 Sodium Chloride 0.9% 1000 Ml IV 03/13/23 22:06 Infused .Q1H1M STA Infusion Sodium Chloride Confirm 03/13/23 21:11 Sodium Chloride 0.9% 1000 Ml Administered 03/13/23 21:12 Dose 1,000 mls @ ud .ROUTE .STK-MED ONE Morphine Sulfate 4 mg 03/13/23 21:06 03/13/23 21:12 Morphine Sulfate 4 Mg/Ml Injection IV 03/13/23 21:07 4 mg STAT ONE Administration Morphine Sulfate Confirm 03/13/23 21:11 Morphine Sulfate 4 Mg/Ml Injection Administered 03/13/23 21:12 Dose 4 mg .ROUTE .STK-MED ONE Morphine Sulfate 4 mg 03/13/23 22:30 03/13/23 22:33 Morphine Sulfate 4 Mg/Ml Injection IV 03/13/23 22:31 4 mg STAT ONE Administration Morphine Sulfate Confirm 03/13/23 22:32 Morphine Sulfate 4 Mg/Ml Injection Administered 03/13/23 22:33 Dose 4 mg .ROUTE .STK-MED ONE Ondansetron HCl 4 mg 03/13/23 21:07 03/13/23 21:12 Ondansetron Hcl 4 Mg/2 Ml Vial IV 03/13/23 21:08 4 mg STAT ONE Administration Ondansetron HCl Confirm 03/13/23 21:11 Ondansetron Hcl 4 Mg/2 Ml Vial Administered 03/13/23 21:12 Dose 4 mg .ROUTE .STK-MED ONE Lab/Rad Data: Laboratory Result Diagrams 03/13/23 21:15 03/13/23 21:15 Laboratory Results 03/14/23 03/13/23 03/13/23 Range/Units 01:23 22:02 21:15 WBC (4.0-10.5) x10^3/uL RBC (4.1-5.6) x10^6/uL Hgb (12.5-18.0) g/dL Hct (42-50) % MCV (78-100) fL MCH (26-32) pg MCHC (32-36) g/dL RDW (11.5-14.0) % Plt Count (150-450) x10^3/uL MPV (7.5-11.0) fL Gran % (36.0-66.0) % Immature Gran % (Auto) (0.00-0.4) % Nucleat RBC Rel Count (0.00-0.1) % Eos # (Auto) (0-0.5) x10^3/uL Immature Gran # (Auto) (0.00-0.03) x10^3u/L Absolute Lymphs (auto) (1.0-4.6) x10^3/uL Absolute Monos (auto) (0.0-1.3) x10^3/uL Absolute Nucleated RBC (0.00-0.01) x10^3u/L Lymphocytes % (24.0-44.0) % Monocytes % (0.0-12.0) % Eosinophils % (0.00-5.0) % Basophils % (0.0-0.4) % Absolute Granulocytes (1.4-6.9) x10^3/uL Basophils # (0-0.4) x10^3/uL Sodium (137-145) mmol/L Potassium (3.5-5.1) mmol/L Chloride (98-107) mmol/L Carbon Dioxide (22-30) mmol/L Anion Gap (5-15) MEQ/L BUN (9-20) mg/dL Creatinine (0.66-1.25) mg/dL Estimated GFR ML/MIN Glucose (74-106) mg/dL Calcium (8.4-10.2) mg/dL Total Bilirubin (0.2-1.3) mg/dL AST (17-59) U/L ALT (0-50) U/L Alkaline Phosphatase (38-126) U/L Troponin I < 0.012 < 0.012 (0.000-0.034) ng/mL Serum Total Protein (6.3-8.2) g/dL Albumin (3.5-5.0) g/dL Lipase (23-300) U/L Urine Color Yellow (Yellow) Urine Appearance Clear (Clear) Urine pH 7.0 (4.6-8.0) Ur Specific Math[place] >=1.030 A (1.005-1.030) Urine Protein Negative (Negative) Urine Glucose (UA) 100 A (Negative) mg/dL Urine Ketones Negative (Negative) Urine Blood Negative (Negative) Urine Nitrite Negative (Negative) Urine Bilirubin Negative (Negative) Urine Urobilinogen 0.2 (0.2) mg/dL Ur Leukocyte Esterase Negative (Negative) U Hyaline Cast (Auto) NONE SEEN (0-2) /LPF Urine Microscopic RBC 0-2 (0-5) /HPF Urine Microscopic WBC 0-2 (0-5) /HPF Ur Epithelial Cells None Seen (None Seen) /HPF Urine Bacteria None Seen (None Seen) /HPF Urine Culture Reflexed NO (NO) 03/13/23 03/13/23 Range/Units 21:15 21:15 WBC 14.3 H (4.0-10.5) x10^3/uL RBC 5.19 (4.1-5.6) x10^6/uL Hgb 15.3 (12.5-18.0) g/dL Hct 46.1 (42-50) % MCV 88.8 (78-100) fL MCH 29.5 (26-32) pg MCHC 33.2 (32-36) g/dL RDW 13.1 (11.5-14.0) % Plt Count 237 (150-450) x10^3/uL MPV 9.8 (7.5-11.0) fL Gran % 82.8 H (36.0-66.0) % Immature Gran % (Auto) 0.4 (0.00-0.4) % Nucleat RBC Rel Count 0.0 (0.00-0.1) % Eos # (Auto) 0.03 (0-0.5) x10^3/uL Immature Gran # (Auto) 0.06 H (0.00-0.03) x10^3u/L Absolute Lymphs (auto) 1.55 (1.0-4.6) x10^3/uL Absolute Monos (auto) 0.78 (0.0-1.3) x10^3/uL Absolute Nucleated RBC 0.00 (0.00-0.01) x10^3u/L Lymphocytes % 10.8 L (24.0-44.0) % Monocytes % 5.5 (0.0-12.0) % Eosinophils % 0.2 (0.00-5.0) % Basophils % 0.3 (0.0-0.4) % Absolute Granulocytes 11.84 H (1.4-6.9) x10^3/uL Basophils # 0.04 (0-0.4) x10^3/uL Sodium 136 L (137-145) mmol/L Potassium 5.1 (3.5-5.1) mmol/L Chloride 100 (98-107) mmol/L Carbon Dioxide 28 (22-30) mmol/L Anion Gap 13.9 (5-15) MEQ/L BUN 24 H (9-20) mg/dL Creatinine 1.38 H (0.66-1.25) mg/dL Estimated GFR 65.9 ML/MIN Glucose 150 H (74-106) mg/dL Calcium 9.8 (8.4-10.2) mg/dL Total Bilirubin 0.40 (0.2-1.3) mg/dL AST 30 (17-59) U/L ALT 37 (0-50) U/L Alkaline Phosphatase 72 (38-126) U/L Troponin I (0.000-0.034) ng/mL Serum Total Protein 7.8 (6.3-8.2) g/dL Albumin 4.9 (3.5-5.0) g/dL Lipase 30 (23-300) U/L Urine Color (Yellow) Urine Appearance (Clear) Urine pH (4.6-8.0) Ur Specific Mathis (1.005-1.030) Urine Protein (Negative) Urine Glucose (UA) (Negative) mg/dL Urine Ketones (Negative) Urine Blood (Negative) Urine Nitrite (Negative) Urine Bilirubin (Negative) Urine Urobilinogen (0.2) mg/dL Ur Leukocyte Esterase (Negative) U Hyaline Cast (Auto) (0-2) /LPF Urine Microscopic RBC (0-5) /HPF Urine Microscopic WBC (0-5) /HPF Ur Epithelial Cells (None Seen) /HPF Urine Bacteria (None Seen) /HPF Urine Culture Reflexed (NO) - Progress Progress: improved Progress Note: Patient's return visit and work-up at previous visit was discussed with Dr. Lara, patient's surgeon who performed a Petra fundoplication. He advised repeating the work-up. 03/13/23 21:22 Case discussed with at 11:30pm who reviewed the CT findings. Wire of the leukocytosis worsening kidney function and per fluid left side of his abdomen and bowel thickening he is concerned for possible inflammatory bowel disease. Higher level of care/GI consultation indicated per Dr. Lara. 03/13/23 23:[address] Martínez at 12:07 AM. Transfer declined as they do not have GI available 03/14/23 00:[address] Figueroa GI physician at [facility] who accepts transfer at 12:12 AM. 03/14/23 00:[address] Duenas hospitalist at [facility] at 1:[address] Duenas accepts transfer. 03/14/23 01:[address] Garvin and at 2:31 AM who accepts admission to observation as there are no beds immediately available at [facility]. 03/14/23 02:36 Patient today 42-year-old male presents to our ED for evaluation of abdominal pain. Patient was in our ED 2 days ago for the same. Work-up was essentially nonremarkable at that time. Patient states that his pain never completely resolved. Patient states his pain is now significantly worse. Physical exam reveals tenderness palpation along the periumbilical region. No signs of trauma on exam. Physical exam otherwise unremarkable. Repeat laboratory work-up reveals a leukocytosis of 14. There is been an increase in patient's creatinine as well from 9-1.38. CT abdomen pelvis showed fecal stasis. However our general surgeon felt that patient may be developing a inflammatory bowel condition requiring GI evaluation. [facility] has no beds immediately available. Patient will be admitted pending transfer to [facility]. Plan of care discussed with patient. He agrees to admission at [facility] for further evaluation and treatment. Portions of this note were created with voice recognition technology. There may be grammatical, spelling, punctuation or sound alike errors Complexity of problems addressed is moderate acute complicated No critical care time Complexity of data reviewed and analyzed is extensive.. I spoke to multiple specialist as stated above. Case discussed with Dr. Roland hospitalist who excepts admission to observation. Test ordered test reviewed. Results analyzed and correlated clinically. Risk of complication and a risk of morbidity/mortality of patient management is high. Patient requires transfer to higher level of care/hospitalization. Kenan conley received multiple doses of morphine and Dilaudid all controlled pain medications for pain control Vital stable. Time spent to admit patient is approximately 15 minutes. Plan of care established for shared decision making. Portions of this note were created with voice recognition technology. There may be grammatical, spelling, punctuation or sound alike errors 03/14/23 02:[address] Hightower (Case discussed with Dr. Elise 9:04 PM.) Counseled pt/family regarding: lab results, diagnosis, need for follow-up, rad results - Departure Departure Disposition: Transfer Clinical Impression: Diffuse fecal stasis, Acute renal injury, Leukocytosis, Intractable abdominal pain Condition: Stable Critical Care Time: No Referrals: ROBERTA SINCLAIR MD [Primary Care Provider] - Follow up/PCP as directed
[2023-03-13 21:21] LABS: Absolute Neutrophil Ct (ANC) 11.84 x10^3/uL (1.4-6.9); BASOPHIL % 0.3 % (0.0-0.4); Basophil (Absolute #) 0.04 x10^3/uL (0-0.4); Eosinophil % 0.2 % (0.00-5.0); Eosinophil (Absolute #) 0.03 x10^3/uL (0-0.5); Hematocrit 46.1 % (42-50); Hemoglobin 15.3 g/dL (12.5-18.0); IMMATURE GRAN # 0.06 x10^3u/L (0.00-0.03); IMMATURE GRAN % 0.4 % (0.00-0.4); Lymphocyte (Absolute #) 1.55 x10^3/uL (1.0-4.6); Lymphocytes % 10.8 % (24.0-44.0); Mean Cell Volume 88.8 fL (78-100); Mean Corpuscular Hemoglobin 29.5 pg (26-32); Mean Corpuscular Hgb Concent. 33.2 g/dL (32-36); Mean Platelet Volume 9.8 fL (7.5-11.0); Monocyte (Absolute #) 0.78 x10^3/uL (0.0-1.3); Monocytes % 5.5 % (0.0-12.0); Neutrophil % 82.8 % (36.0-66.0); Platelet Count 237 x10^3/uL (150-450); Red Blood Count 5.19 x10^6/uL (4.1-5.6); Red Cell Distribution Width 13.1 % (11.5-14.0); White Blood Count 14.3 x10^3/uL (4.0-10.5)
[2023-03-13 21:38] LABS: ALBUMIN 4.9 g/dL (3.5-5.0); ANION GAP 13.9 MEQ/L (5-15); BILIRUBIN,TOTAL 0.4 mg/dL (0.2-1.3); Calcium 9.8 mg/dL (8.4-10.2); Creatinine 1 1.38 mg/dL (0.66-1.25); EST GLOMERULAR FILTRATION RATE 65.9 ML/MIN; Potassium 5.1 mmol/L (3.5-5.1); Total Protein 7.8 g/dL (6.3-8.2)
[2023-03-13 23:28] LABS: ADD URINE CULTURE? NO (NO); Appearance Clear (Clear); Bacteria None Seen /HPF (None Seen); Bilirubin Negative (Negative); Blood Negative (Negative); Epithelial Cells None Seen /HPF (None Seen); Glucose, Urine 100 mg/dL (Negative); Hyaline Casts NONE SEEN /LPF (0-2); Ketones Negative (Negative); Leukocyte Esterase Negative (Negative); Nitrite Negative (Negative); Protein,Urine Dip Negative (Negative); RBC 0-2 /HPF (0-5); Specific Gravity >=1.030 (1.005-1.030); Urobilinogen 0.2 mg/dL (0.2); WBC 0-2 /HPF (0-5)
[2023-03-14] MEDS ORDERED: Hydromorphone 1 mg/ml Injection IV ONE (02:28)
[2023-03-14] MEDS ORDERED: Hydromorphone 1 mg/ml Injection ONE (02:52)
[2023-03-14] MEDS ORDERED: PIPERACILLIN/TAZOBACTAM IV ONE (05:22)
[2023-03-14] MEDS ORDERED: Sodium Chloride 100ML MINI-BAG PLUS 100 ML IV ONE (05:24)
[2023-03-14] MEDS: Sodium Chloride 0.9% 1000 ML 1,000 ML IV SCH ×2 (05:28→14:07)
[2023-03-14] MEDS: PIPERACILLIN/TAZOBACTAM 3.375 GM in Sodium Chloride 100ML MINI-BAG PLUS 100 ML IV SCH ×2 (05:28→11:12)
[2023-03-14] MEDS ORDERED: Hydromorphone 1 mg/ml Injection IV PRN (05:47)
--- NOTE | 2023-03-14 06:00 | PCM.HP ---
History of Present Illness - Chief Complaint Chief Complaint: Intractable abdominal pain, leukocytosis, acute renal injury History of Present Illness: 42 yo wm with hx of GERD, S/p Recent Petra Fundoplication presents with approx 4 day hx of periumbilical abd pain. Pt denies fevers or chills. Had 1 episode of vomiting. Denies diarrhea. Came to ED 72 hours ago with unrevealing w/u. Pain got better but never completely went away. He had a large meal and abd pain got worse. He presented today with repeat CT showing possible enteritis and thickened small bowel. He is awaiting transfer for GI eval. Started on antibxs and IVFs. - Review of Systems Constitutional: No Symptoms Eyes: No Symptoms Ears, Nose, & Throat: No Symptoms Respiratory: No Symptoms Cardiac: No Symptoms Abdominal/Gastrointestinal: Abdominal Pain, Nausea Genitourinary Symptoms: No Symptoms Musculoskeletal: No Symptoms Skin: No Symptoms Neurological: No Symptoms Psychological: No Symptoms Endocrine: No Symptoms Hematologic/Lymphatic: No Symptoms Immunological/Allergic: No Symptoms Medications & Allergies Home Medications: Home Medication List Smz/Tmp Ds Tablet [Bactrim Ds Tablet] 1 udtab PO BID 03/13/23 [History Confirmed 03/13/23] Allergies/Adverse Reactions: Allergies Allergy/AdvReac Type Severity Reaction Status Date / Time erythromycin ethylsuccinate Allergy Severe Rash Verified 03/13/23 21:06 [From E.E.S.] Penicillins Allergy Severe Rash Verified 03/13/23 21:06 - Past Medical History Past Medical History: Yes Neurological History: No Pertinent History ENT History: No Pertinent History Cardiac History: No Pertinent History Respiratory History: No Pertinent History Endocrine Medical History: No Pertinent History Musculoskelatal History: No Pertinent History GI Medical History: GERD, Hernia, Other History: No Pertinent History Pyscho-Social History: No Pertinent History Male Reproductive Disorders: No Pertinent History Comment: h-pylori diagnosis in 2009. hiatal hernia, inguinal - Past Surgical History Past Surgical History: Yes Neuro Surgical History: No Pertinent History Cardiac History: No Pertinent History Respiratory Surgery: No Pertinent History GI Surgical History: Hernia Repair Genitourinary Surgical Hx: No Pertinent History Musculskeletal Surgical Hx: No Pertinent History Male Surgical History: No Pertinent History Other Surgical History: petra fundoplication in october with dr reyes at [place] - Social History Smoking Status: Never smoker Exposure to second hand smoke: No Alcohol: None Drug Use: none - Physical Exam Vital Signs: Vital Signs - 24 hr Temp Pulse Resp BP BP Pulse Ox 03/14/23 04:14 96 03/14/23 03:55 98.1 F 63 14 124/76 96 03/14/23 03:52 98.1 F 63 14 124/76 96 03/14/23 03:00 62 16 140/89 94 L 03/14/23 02:47 100 03/14/23 02:30 132/91 95 03/14/23 02:00 66 17 125/75 96 03/14/23 01:30 129/82 97 03/14/23 01:00 64 16 134/78 95 03/14/23 00:30 143/92 96 03/14/23 00:00 107 H 17 129/90 96 03/13/23 23:30 124/81 96 03/13/23 23:00 105 H 16 144/87 97 03/13/23 22:30 132/82 97 03/13/23 22:00 60 18 132/82 99 03/13/23 20:47 97.6 F 69 18 146/89 100 General Appearance: no apparent distress Neurologic Exam: alert, oriented x 3, cooperative Eye Exam: PERRL/EOMI, eyes nml inspection Ears, Nose, Throat Exam: normal ENT inspection, TMs normal, dry mucous membranes Respiratory Exam: normal breath sounds Cardiovascular Exam: regular rate/rhythm, normal heart sounds Gastrointestinal/Abdomen Exam: soft, normal bowel sounds, other (pain on deep palpation around umbilicus), No tenderness Back Exam: normal inspection Extremity Exam: normal inspection Skin Exam: normal color, warm Results - Labs Lab/Micro Results: Lab Results-Last 24 Hours 03/13/23 03/13/23 03/13/23 Range/Units 21:15 21:15 21:15 WBC 14.3 H (4.0-10.5) x10^3/uL RBC 5.19 (4.1-5.6) x10^6/uL Hgb 15.3 (12.5-18.0) g/dL Hct 46.1 (42-50) % MCV 88.8 (78-100) fL MCH 29.5 (26-32) pg MCHC 33.2 (32-36) g/dL RDW 13.1 (11.5-14.0) % Plt Count 237 (150-450) x10^3/uL MPV 9.8 (7.5-11.0) fL Gran % 82.8 H (36.0-66.0) % Immature Gran % (Auto) 0.4 (0.00-0.4) % Nucleat RBC Rel Count 0.0 (0.00-0.1) % Eos # (Auto) 0.03 (0-0.5) x10^3/uL Immature Gran # (Auto) 0.06 H (0.00-0.03) x10^3u/L Absolute Lymphs (auto) 1.55 (1.0-4.6) x10^3/uL Absolute Monos (auto) 0.78 (0.0-1.3) x10^3/uL Absolute Nucleated RBC 0.00 (0.00-0.01) x10^3u/L Lymphocytes % 10.8 L (24.0-44.0) % Monocytes % 5.5 (0.0-12.0) % Eosinophils % 0.2 (0.00-5.0) % Basophils % 0.3 (0.0-0.4) % Absolute Granulocytes 11.84 H (1.4-6.9) x10^3/uL Basophils # 0.04 (0-0.4) x10^3/uL Sodium 136 L (137-145) mmol/L Potassium 5.1 (3.5-5.1) mmol/L Chloride 100 (98-107) mmol/L Carbon Dioxide 28 (22-30) mmol/L Anion Gap 13.9 (5-15) MEQ/L BUN 24 H (9-20) mg/dL Creatinine 1.38 H (0.66-1.25) mg/dL Estimated GFR 65.9 ML/MIN Glucose 150 H (74-106) mg/dL Calcium 9.8 (8.4-10.2) mg/dL Total Bilirubin 0.40 (0.2-1.3) mg/dL AST 30 (17-59) U/L ALT 37 (0-50) U/L Alkaline Phosphatase 72 (38-126) U/L Troponin I < 0.012 (0.000-0.034) ng/mL Serum Total Protein 7.8 (6.3-8.2) g/dL Albumin 4.9 (3.5-5.0) g/dL Lipase 30 (23-300) U/L Urine Color (Yellow) Urine Appearance (Clear) Urine pH (4.6-8.0) Ur Specific [place] (1.005-1.030) Urine Protein (Negative) Urine Glucose (UA) (Negative) mg/dL Urine Ketones (Negative) Urine Blood (Negative) Urine Nitrite (Negative) Urine Bilirubin (Negative) Urine Urobilinogen (0.2) mg/dL Ur Leukocyte Esterase (Negative) U Hyaline Cast (Auto) (0-2) /LPF Urine Microscopic RBC (0-5) /HPF Urine Microscopic WBC (0-5) /HPF Ur Epithelial Cells (None Seen) /HPF Urine Bacteria (None Seen) /HPF Urine Culture Reflexed (NO) 03/13/23 03/14/23 Range/Units 22:02 01:23 WBC (4.0-10.5) x10^3/uL RBC (4.1-5.6) x10^6/uL Hgb (12.5-18.0) g/dL Hct (42-50) % MCV (78-100) fL MCH (26-32) pg MCHC (32-36) g/dL RDW (11.5-14.0) % Plt Count (150-450) x10^3/uL MPV (7.5-11.0) fL Gran % (36.0-66.0) % Immature Gran % (Auto) (0.00-0.4) % Nucleat RBC Rel Count (0.00-0.1) % Eos # (Auto) (0-0.5) x10^3/uL Immature Gran # (Auto) (0.00-0.03) x10^3u/L Absolute Lymphs (auto) (1.0-4.6) x10^3/uL Absolute Monos (auto) (0.0-1.3) x10^3/uL Absolute Nucleated RBC (0.00-0.01) x10^3u/L Lymphocytes % (24.0-44.0) % Monocytes % (0.0-12.0) % Eosinophils % (0.00-5.0) % Basophils % (0.0-0.4) % Absolute Granulocytes (1.4-6.9) x10^3/uL Basophils # (0-0.4) x10^3/uL Sodium (137-145) mmol/L Potassium (3.5-5.1) mmol/L Chloride (98-107) mmol/L Carbon Dioxide (22-30) mmol/L Anion Gap (5-15) MEQ/L BUN (9-20) mg/dL Creatinine (0.66-1.25) mg/dL Estimated GFR ML/MIN Glucose (74-106) mg/dL Calcium (8.4-10.2) mg/dL Total Bilirubin (0.2-1.3) mg/dL AST (17-59) U/L ALT (0-50) U/L Alkaline Phosphatase (38-126) U/L Troponin I < 0.012 (0.000-0.034) ng/mL Serum Total Protein (6.3-8.2) g/dL Albumin (3.5-5.0) g/dL Lipase (23-300) U/L Urine Color Yellow (Yellow) Urine Appearance Clear (Clear) Urine pH 7.0 (4.6-8.0) Ur Specific [place] >=1.030 A (1.005-1.030) Urine Protein Negative (Negative) Urine Glucose (UA) 100 A (Negative) mg/dL Urine Ketones Negative (Negative) Urine Blood Negative (Negative) Urine Nitrite Negative (Negative) Urine Bilirubin Negative (Negative) Urine Urobilinogen 0.2 (0.2) mg/dL Ur Leukocyte Esterase Negative (Negative) U Hyaline Cast (Auto) NONE SEEN (0-2) /LPF Urine Microscopic RBC 0-2 (0-5) /HPF Urine Microscopic WBC 0-2 (0-5) /HPF Ur Epithelial Cells None Seen (None Seen) /HPF Urine Bacteria None Seen (None Seen) /HPF Urine Culture Reflexed NO (NO) - Radiology Impressions Radiology Exams & Impressions: Radiology Procedures Category Date Time Status ABDOMEN AND PELVIS W CONTRAST [CT] Stat Exams 03/13/23 21:06 Taken Assessment/Plan (1) Intractable abdominal pain Current Visit: Yes Status: Acute Assessment & Plan: 1. Abdominal pain: etiology not clear. CT read and surgery eval suspect evolving inflammatory process. Needs GI Eval. Awaiting transfer but not beds available. Continue antibxs and analgesics. 2. MOE: 2/2 volume depletion. Continue IVFs 3. FEN: clears 4. PX: Pt is ambulatory Stevensonernie Garvin MD entire encounter done via telemedicine. Code(s): R10.9 - UNSPECIFIED ABDOMINAL PAIN Telemedicine Encounter - Telemedicine Encounter Telemedicine Encounter: The entirety of this encounter was performed via Telemedicine"
[2023-03-14 06:45] VITALS: RESP 17
[2023-03-14] MEDS: FLAGYL 500 MG IVPB 500 MG/100 ML BAG IV SCH ×2 (07:23→14:05)
[2023-03-14 08:22] LABS: Absolute Neutrophil Ct (ANC) 4.24 x10^3/uL (1.4-6.9); BASOPHIL % 0.4 % (0.0-0.4); Basophil (Absolute #) 0.03 x10^3/uL (0-0.4); Eosinophil % 0.9 % (0.00-5.0); Eosinophil (Absolute #) 0.06 x10^3/uL (0-0.5); Hematocrit 45.7 % (42-50); Hemoglobin 15.1 g/dL (12.5-18.0); IMMATURE GRAN # 0.02 x10^3u/L (0.00-0.03); IMMATURE GRAN % 0.3 % (0.00-0.4); Lymphocyte (Absolute #) 2.04 x10^3/uL (1.0-4.6); Mean Cell Volume 88.6 fL (78-100); Mean Corpuscular Hemoglobin 29.3 pg (26-32); Mean Platelet Volume 9.5 fL (7.5-11.0); Monocyte (Absolute #) 0.65 x10^3/uL (0.0-1.3); Monocytes % 9.2 % (0.0-12.0); Neutrophil % 60.2 % (36.0-66.0); Platelet Count 224 x10^3/uL (150-450); Red Blood Count 5.16 x10^6/uL (4.1-5.6); Red Cell Distribution Width 13.2 % (11.5-14.0)
[2023-03-14 08:40] LABS: ALBUMIN 4.3 g/dL (3.5-5.0); ANION GAP 11.8 MEQ/L (5-15); BILIRUBIN,TOTAL 0.8 mg/dL (0.2-1.3); Calcium 9.1 mg/dL (8.4-10.2); Creatinine 1 1.15 mg/dL (0.66-1.25); Potassium 3.8 mmol/L (3.5-5.1)
--- NOTE | 2023-03-14 08:43 | XRAY ---
Indication: Abdomen pain. Multiple contiguous axial images obtained through the abdomen and pelvis using 80 cc Isovue 370 contrast. Comparison: March 11, 2023. Lung bases again demonstrates minimal dependent atelectasis. No infiltrate or effusion heart is not enlarged. Noncontrasted stomach and bowel loops nonobstructed with normal air-filled appendix. Again mild diffuse scattered colonic fecal debris. No free fluid/air. Remaining liver, gallbladder, pancreas, spleen, adrenal glands, kidneys, ureters, bladder, and aorta are unremarkable. No pathologic retroperitoneal lymphadenopathy. Osseous structures intact. Impression: Again mild diffuse fecal stasis. Remaining CT abdomen/pelvis with contrast exam continues to be negative.
--- NOTE | 2023-03-14 09:03 | CONS ---
CONSULT DATE: 03/13/2023 HISTORY: A 42-year-old gentleman fairly healthy in the past, had some reflux and anti-reflux procedure which he has not required any medication since. He had some vague generalized abdominal aches starting a couple of days ago. He was in the emergency room with negative work up and came back last night. He had a little bit of leukocytosis. He denies passing flatus. He denied any diarrhea or bloody stools. He is not having any vomiting currently. PAST MEDICAL HISTORY: No chronic illnesses. PAST SURGICAL HISTORY: Robotic-assisted anti-reflux surgery in the past and has done well since then. MEDICATIONS: He was started on Bactrim for what sounds like maybe a urinary tract infection recently. ALLERGIES: ERYTHROMYCIN. PENICILLIN. FAMILY HISTORY: Negative in regards to this problem. He does have family history of irritable bowel syndrome and lactose intolerance. SOCIAL HISTORY: No smoking or alcohol abuse. REVIEW OF SYSTEMS: Twelve systems reviewed. No chest pain or palpitations. Other systems negative or noncontributory as above and per preadmission questionnaire. He did have a little bit of blood in his urine in the past. PHYSICAL EXAMINATION: GENERAL: No acute distress. HEENT: Sclera nonicteric. EOMI. Oral mucous membranes moist. NECK: No JVD. CHEST: Equal excursion, nonlabored breathing. CVS: Regular rate and rhythm. ABDOMEN: Very soft with some mild tenderness. No rebound. No guarding. No peritoneal signs. No palpable hernia on my exam. Fairly benign abdominal exam. EXTREMITIES: No cyanosis. NEURO: Alert, oriented. LAB DATA AND TESTS: His white count is 14.3, hemoglobin 15.3, PLT 237,000. Creatinine 1.38, lipase 30, total bilirubin 0.40. He had a CT interpretation. I called radiologist who felt there was no change from CT with IV contrast two days ago. He had fecal stasis. On my review of the same, it looked like he had a little bit of some inflammation in the small bowel loops left side of the abdomen. IMPRESSION: A 42-year-old with history of some abdominal pain of unclear etiology that is recurrent. He does have a little bit of constipation but my view of the CT scan he had a little bit of thickening in the small bowel loop left abdomen. Whether he has an irritable bowel disease or some sort of enteritis is unclear at this point or whether he has some sort of ileus, urinary tract infection and/or constipation is unclear. Given the film view, I feel he would benefit from GI opinion. I do not feel he needs any emergent surgical intervention. I discussed this with the emergency room doctor last night. Otherwise, [facility] is the only place to get GI opinion locally here. Apparently they are waiting on a bed. He is on Med/Surg unit here. His family understands. He was not on IV so started him on empiric Zosyn and Flagyl to treat for enteritis and if he has any urinary tract infection as well and give him some IV hydration. I do not feel he needs any emergent surgical intervention. I do feel he would benefit from seeing GI to see what the results are.
--- NOTE | 2023-03-14 10:52 | PCM.DS ---
Discharge Summary Date of Admission: 03/14/23 03:40 Date of Discharge: 03/14/23 Admitting Physician: DANIELLA CAMPBELL MD Primary Care Provider: ROBERTA SINCLAIR Allergies Allergies erythromycin ethylsuccinate [From E.E.S.] Allergy (Severe, Verified 03/13/23 21:06) Rash Penicillins Allergy (Severe, Verified 03/13/23 21:06) Rash Hospital Summary - Hospital Course Hospital Course: 42 yo wm with hx of GERD, S/p Recent Tuyet Fundoplication presents with approx 4 day hx of periumbilical abd pain. Pt denies fevers or chills. Had 1 episode of vomiting. Denies diarrhea. Came to ED 72 hours ago with unrevealing w/u. Pain got better but never completely went away. He had a large meal and abd pain got worse. He presented today with repeat CT showing possible enteritis and thickened small bowel. Surgery consulted recommending transfer to higher level of care with GI services. He will transfer to [place] for GI eval. Started on zosyn/flagyl and IVFs. Latest Assessment & Plan 1) Intractable abdominal pain Current Visit: Yes Status: Acute Assessment & Plan: 1. Abdominal pain: etiology not clear. CT read and surgery eval suspect evolving inflammatory process. Needs GI Eval. Awaiting transfer but not beds available. Continue antibxs and analgesics. 2. MOE: 2/2 volume depletion. Continue IVFs 3. FEN: clears 4. PX: Pt is ambulatory I spent 35 minutes [id number] with the patient on the day of discharge performing discharge exam, discussing hospital stay and discharge instructions with patient and caregivers, preparation of discharge records, prescriptions & referral forms and addressing any questions/concerns the patient had as documented above. - Vitals & Intake/Output Vital Signs: Vital Signs Temperature 97.7 F 03/14/23 06:45 Pulse Rate 58 L 03/14/23 06:45 Respiratory Rate 17 03/14/23 06:45 Blood Pressure 131/81 03/14/23 06:45 O2 Sat by Pulse Oximetry 96 03/14/23 06:45 Intake & Output: Intake & Output 03/11/23 03/12/23 03/13/23 03/14/23 11:59 11:59 11:59 11:59 Intake Total 480 Output Total 500 Balance -20 Weight 73.1 kg - Lab Result Diagrams: 03/14/23 08:00 03/14/23 08:00 Lab Results-Last 24 Hrs: Lab Results-Last 24 Hours 03/13/23 03/13/23 03/13/23 Range/Units 21:15 21:15 21:15 WBC 14.3 H (4.0-10.5) x10^3/uL RBC 5.19 (4.1-5.6) x10^6/uL Hgb 15.3 (12.5-18.0) g/dL Hct 46.1 (42-50) % MCV 88.8 (78-100) fL MCH 29.5 (26-32) pg MCHC 33.2 (32-36) g/dL RDW 13.1 (11.5-14.0) % Plt Count 237 (150-450) x10^3/uL MPV 9.8 (7.5-11.0) fL Gran % 82.8 H (36.0-66.0) % Immature Gran % (Auto) 0.4 (0.00-0.4) % Nucleat RBC Rel Count 0.0 (0.00-0.1) % Eos # (Auto) 0.03 (0-0.5) x10^3/uL Immature Gran # (Auto) 0.06 H (0.00-0.03) x10^3u/L Absolute Lymphs (auto) 1.55 (1.0-4.6) x10^3/uL Absolute Monos (auto) 0.78 (0.0-1.3) x10^3/uL Absolute Nucleated RBC 0.00 (0.00-0.01) x10^3u/L Lymphocytes % 10.8 L (24.0-44.0) % Monocytes % 5.5 (0.0-12.0) % Eosinophils % 0.2 (0.00-5.0) % Basophils % 0.3 (0.0-0.4) % Absolute Granulocytes 11.84 H (1.4-6.9) x10^3/uL Basophils # 0.04 (0-0.4) x10^3/uL Sodium 136 L (137-145) mmol/L Potassium 5.1 (3.5-5.1) mmol/L Chloride 100 (98-107) mmol/L Carbon Dioxide 28 (22-30) mmol/L Anion Gap 13.9 (5-15) MEQ/L BUN 24 H (9-20) mg/dL Creatinine 1.38 H (0.66-1.25) mg/dL Estimated GFR 65.9 ML/MIN Glucose 150 H (74-106) mg/dL Calcium 9.8 (8.4-10.2) mg/dL Total Bilirubin 0.40 (0.2-1.3) mg/dL AST 30 (17-59) U/L ALT 37 (0-50) U/L Alkaline Phosphatase 72 (38-126) U/L Troponin I < 0.012 (0.000-0.034) ng/mL Serum Total Protein 7.8 (6.3-8.2) g/dL Albumin 4.9 (3.5-5.0) g/dL Lipase 30 (23-300) U/L Urine Color (Yellow) Urine Appearance (Clear) Urine pH (4.6-8.0) Ur Specific [place] (1.005-1.030) Urine Protein (Negative) Urine Glucose (UA) (Negative) mg/dL Urine Ketones (Negative) Urine Blood (Negative) Urine Nitrite (Negative) Urine Bilirubin (Negative) Urine Urobilinogen (0.2) mg/dL Ur Leukocyte Esterase (Negative) U Hyaline Cast (Auto) (0-2) /LPF Urine Microscopic RBC (0-5) /HPF Urine Microscopic WBC (0-5) /HPF Ur Epithelial Cells (None Seen) /HPF Urine Bacteria (None Seen) /HPF Urine Culture Reflexed (NO) 03/13/23 03/14/23 03/14/23 Range/Units 22:02 01:23 06:15 WBC (4.0-10.5) x10^3/uL RBC (4.1-5.6) x10^6/uL Hgb (12.5-18.0) g/dL Hct (42-50) % MCV (78-100) fL MCH (26-32) pg MCHC (32-36) g/dL RDW (11.5-14.0) % Plt Count (150-450) x10^3/uL MPV (7.5-11.0) fL Gran % (36.0-66.0) % Immature Gran % (Auto) (0.00-0.4) % Nucleat RBC Rel Count (0.00-0.1) % Eos # (Auto) (0-0.5) x10^3/uL Immature Gran # (Auto) (0.00-0.03) x10^3u/L Absolute Lymphs (auto) (1.0-4.6) x10^3/uL Absolute Monos (auto) (0.0-1.3) x10^3/uL Absolute Nucleated RBC (0.00-0.01) x10^3u/L Lymphocytes % (24.0-44.0) % Monocytes % (0.0-12.0) % Eosinophils % (0.00-5.0) % Basophils % (0.0-0.4) % Absolute Granulocytes (1.4-6.9) x10^3/uL Basophils # (0-0.4) x10^3/uL Sodium (137-145) mmol/L Potassium (3.5-5.1) mmol/L Chloride (98-107) mmol/L Carbon Dioxide (22-30) mmol/L Anion Gap (5-15) MEQ/L BUN (9-20) mg/dL Creatinine (0.66-1.25) mg/dL Estimated GFR ML/MIN Glucose (74-106) mg/dL Calcium (8.4-10.2) mg/dL Total Bilirubin (0.2-1.3) mg/dL AST (17-59) U/L ALT (0-50) U/L Alkaline Phosphatase (38-126) U/L Troponin I < 0.012 < 0.012 (0.000-0.034) ng/mL Serum Total Protein (6.3-8.2) g/dL Albumin (3.5-5.0) g/dL Lipase (23-300) U/L Urine Color Yellow (Yellow) Urine Appearance Clear (Clear) Urine pH 7.0 (4.6-8.0) Ur Specific [place] >=1.030 A (1.005-1.030) Urine Protein Negative (Negative) Urine Glucose (UA) 100 A (Negative) mg/dL Urine Ketones Negative (Negative) Urine Blood Negative (Negative) Urine Nitrite Negative (Negative) Urine Bilirubin Negative (Negative) Urine Urobilinogen 0.2 (0.2) mg/dL Ur Leukocyte Esterase Negative (Negative) U Hyaline Cast (Auto) NONE SEEN (0-2) /LPF Urine Microscopic RBC 0-2 (0-5) /HPF Urine Microscopic WBC 0-2 (0-5) /HPF Ur Epithelial Cells None Seen (None Seen) /HPF Urine Bacteria None Seen (None Seen) /HPF Urine Culture Reflexed NO (NO) 03/14/23 03/14/23 Range/Units 08:00 08:00 WBC 7.0 (4.0-10.5) x10^3/uL RBC 5.16 (4.1-5.6) x10^6/uL Hgb 15.1 (12.5-18.0) g/dL Hct 45.7 (42-50) % MCV 88.6 (78-100) fL MCH 29.3 (26-32) pg MCHC 33.0 (32-36) g/dL RDW 13.2 (11.5-14.0) % Plt Count 224 (150-450) x10^3/uL MPV 9.5 (7.5-11.0) fL Gran % 60.2 (36.0-66.0) % Immature Gran % (Auto) 0.3 (0.00-0.4) % Nucleat RBC Rel Count 0.0 (0.00-0.1) % Eos # (Auto) 0.06 (0-0.5) x10^3/uL Immature Gran # (Auto) 0.02 (0.00-0.03) x10^3u/L Absolute Lymphs (auto) 2.04 (1.0-4.6) x10^3/uL Absolute Monos (auto) 0.65 (0.0-1.3) x10^3/uL Absolute Nucleated RBC 0.00 (0.00-0.01) x10^3u/L Lymphocytes % 29.0 (24.0-44.0) % Monocytes % 9.2 (0.0-12.0) % Eosinophils % 0.9 (0.00-5.0) % Basophils % 0.4 (0.0-0.4) % Absolute Granulocytes 4.24 (1.4-6.9) x10^3/uL Basophils # 0.03 (0-0.4) x10^3/uL Sodium 139 (137-145) mmol/L Potassium 3.8 D (3.5-5.1) mmol/L Chloride 103 (98-107) mmol/L Carbon Dioxide 28 (22-30) mmol/L Anion Gap 11.8 (5-15) MEQ/L BUN 15 (9-20) mg/dL Creatinine 1.15 (0.66-1.25) mg/dL Estimated GFR 82.0 ML/MIN Glucose 105 (74-106) mg/dL Calcium 9.1 (8.4-10.2) mg/dL Total Bilirubin 0.80 (0.2-1.3) mg/dL AST 25 (17-59) U/L ALT 31 (0-50) U/L Alkaline Phosphatase 54 (38-126) U/L Troponin I (0.000-0.034) ng/mL Serum Total Protein 7.0 (6.3-8.2) g/dL Albumin 4.3 (3.5-5.0) g/dL Lipase (23-300) U/L Urine Color (Yellow) Urine Appearance (Clear) Urine pH (4.6-8.0) Ur Specific [place] (1.005-1.030) Urine Protein (Negative) Urine Glucose (UA) (Negative) mg/dL Urine Ketones (Negative) Urine Blood (Negative) Urine Nitrite (Negative) Urine Bilirubin (Negative) Urine Urobilinogen (0.2) mg/dL Ur Leukocyte Esterase (Negative) U Hyaline Cast (Auto) (0-2) /LPF Urine Microscopic RBC (0-5) /HPF Urine Microscopic WBC (0-5) /HPF Ur Epithelial Cells (None Seen) /HPF Urine Bacteria (None Seen) /HPF Urine Culture Reflexed (NO) - Radiology Exams Ordered Rad Exams-Entire Visit: Radiology Procedures Category Date Time Status ABDOMEN AND PELVIS W CONTRAST [CT] Stat Exams 03/13/23 21:06 Completed Discharge Exam General Appearance: mild distress Neurologic Exam: alert, oriented x 3, cooperative Eye Exam: PERRL Ears, Nose, Throat Exam: normal ENT inspection Neck Exam: normal inspection Respiratory Exam: normal breath sounds, lungs clear Cardiovascular Exam: regular rate/rhythm, normal heart sounds Gastrointestinal/Abdomen Exam: soft, normal bowel sounds, tenderness Male Genitalia Exam: deferred Rectal Exam: deferred Back Exam: normal inspection Extremity Exam: normal inspection - Discharge Disposition: DC TO [facility] Condition: Stable Prescriptions: New Metronidazole 500 mg Premix [Flagyl 500 mg Ivpb] 500 mg IV Q8HT Hydromorphone 1 mg/1Ml Inj [Hydromorphone 1 mg/ml Injection] 0.5 mg IV Q4H PRN PRN PRN Reason: Pain Piperacillin/Tazobactam 3.375G [Piperacillin/Tazobactam] 3.375 gm IV Q6HT NaCl 0.9% 1000 ml [Sodium Chloride 0.9% 1000 ML] 100 ml IV .Q8H Discontinued Smz/Tmp Ds Tablet [Bactrim Ds Tablet] 1 udtab PO BID Follow up with: ROBERTA SINCLAIR MD [Primary Care Provider] -
[2023-03-14 10:57] VITALS: O2SAT 98
[2023-03-14 16:19] VITALS: BP 137/73; PULSE 64; TEMP 97.3
== END 2023-03-14 16:45 | disposition home or self-care (01) ==
LOC: ED 20:40 → MED SURG 03-14 03:40
PROVIDERS: ADMIT Internal Medicine Critical Care Medicine; ATTEND Internal Medicine Critical Care Medicine
DX: R10.9 Unspecified abdominal pain (principal); D72.829 Elevated white blood cell count, unspecified; K59.00 Constipation, unspecified; Z20.828 Contact with and (suspected) exposure to other viral communicable diseases
CPT/HCPCS: 36000; 36415; 74177; 80053; 81001; 83690; 84484; 85025; 93268; 96374; 96375; 96376; 99285; J1170; J2270; J2405; Q3014; G0378